=== PATIENT | male | born 1970 | race Asian ===

== ENCOUNTER 2019-05-15 14:23 | Emergency (ER) | payer OTHER ==
[~2019-05-15] VITALS: Ht 170.2 cm; Wt 77.1 kg
[2019-05-15 14:27] VITALS: BP 126/86; Ht 170.2 cm; Wt 77.1 kg
== END 2019-05-15 16:23 | disposition home or self-care (01) ==
LOC: ED 14:23
DX: T21.03XA Burn of unspecified degree of upper back, initial encounter (principal); T22.00XA Burn of unspecified degree of shoulder and upper limb, except wrist and hand, unspecified site, initial encounter; T24.031A Burn of unspecified degree of right lower leg, initial encounter; T31.0 Burns involving less than 10% of body surface; X08.8XXA Exposure to other specified smoke, fire and flames, initial encounter; W40.8XXA Explosion of other specified explosive materials, initial encounter; Y93.89 Activity, other specified; Y92.89 Other specified places as the place of occurrence of the external cause; Y99.8 Other external cause status
CPT/HCPCS: 90715